=== PATIENT | female | born 1995 | race Hispanic/Latino ===

== ENCOUNTER 2022-06-06 00:49 | Day surgery (SDC) | payer OTHER ==
[2022-06-06] MEDS ORDERED: hydrALAZINE 20 MG/ML VIAL SLOW IVP PRN (00:52)
== END 2022-06-06 02:20 | disposition home or self-care (01) ==
LOC: CSHLD/OP 00:49
PROVIDERS: ATTEND Obstetrics & Gynecology
DX: O36.8130 Decreased fetal movements, third trimester, not applicable or unspecified (principal); Z3A.30 30 weeks gestation of pregnancy
CPT/HCPCS: 76819

== ENCOUNTER 2022-08-04 15:12 | Inpatient (IN) | payer OTHER ==
[~2022-08-04 15:12] MED LIST: Bupivacaine PF 0.5% 30 ML VIAL ONE; Lidocaine 2% PF 5 ML VIAL ONE
[2022-08-04] MEDS ORDERED: Labetalol HCl 100 MG/20 ML VIAL SLOW IVP PRN ×2 (15:20)
[2022-08-04] MEDS ORDERED: HYDROcodone/Acetaminophen 5/325 mg Tablet PO PRN (15:20)
[2022-08-04] MEDS ORDERED: Carboprost 250 MCG/ML AMP IM PRN (15:20)
[2022-08-04] MEDS ORDERED: Calcium Gluc 4.6 MEQ/10 ML (100 MG/ML) SLOW IVP PRN (15:20)
[2022-08-04] MEDS ORDERED: Ibuprofen 800 MG TAB PO PRN (15:20)
[2022-08-04] MEDS ORDERED: hydrALAZINE 20 MG/ML VIAL SLOW IVP PRN ×2 (15:20)
[2022-08-04] MEDS ORDERED: Diphenoxylate HCl/Atropine Tablet PO PRN (15:20)
[2022-08-04] MEDS ORDERED: Butorphanol Tartrate 1 MG/ML VIAL SLOW IVP PRN (15:20)
[2022-08-04] MEDS ORDERED: Lidocaine 1% (PF) 30 ML VIAL SC PRN (15:20)
[2022-08-04] MEDS ORDERED: Acetaminophen 500 MG TAB PO PRN (15:20)
[2022-08-04] MEDS ORDERED: Ondansetron PF 4 MG/2 ML Vial IVP PRN ×2 (15:20→21:07)
[2022-08-04] MEDS ORDERED: Lorazepam 2 MG/ML VIAL SLOW IVP PRN (15:20)
[2022-08-04] MEDS ORDERED: Misoprostol 200 MCG TAB PR PRN (15:20)
[2022-08-04] MEDS ORDERED: Promethazine HCl 25 MG/ML VIAL IM PRN ×2 (15:20→21:07)
[2022-08-04] MEDS ORDERED: Penicillin G Potassium 5 MILL.UNITS in Sodium Chloride 0.9% 100 ML IVPB SCH (15:30)
[2022-08-04] MEDS ORDERED: NS w/ Oxytocin 30 units 500 ML IV SCH ×2 (15:30)
[2022-08-04 15:41] VITALS: BMI 41.5
[2022-08-04] MEDS: hydrALAZINE 20 MG/ML VIAL SLOW IVP PRN ×2 (16:07→22:00)
[2022-08-04 16:13] LABS: Hemoglobin 9.9 g/dL (12.0-15.5); Mean Corpuscular HGB CONC 33.6 g/dL (32.0-36.0); Mean Corpuscular Hemoglobin 29.6 pg (27.0-33.0); Mean Corpuscular Volume 88.3 fl (81.6-98.3); Mean Platelet Volume 12.8 fl (7.4-10.4); Platelet Count 219 10x3/uL (150-450); RBC Distribution Width 13.4 % (11.5-14.5); Red Blood Cell (RBC) Count 3.34 10x6/uL (3.90-5.03); White Blood Cell (WBC) Count 8.7 10x3/uL (3.5-10.5)
[2022-08-04] MEDS: Magnesium Sulfate 20 gm/500 ml 20 GM/500 ML BAG IVPB SCH (16:50)
[2022-08-04 16:58] LABS: Syphilis Antibody Nonreactive (Nonreactive); Syphilis Antibody Index 0.04 S/CO (<1.00 Non-Reactive)
[2022-08-04 16:59] LABS: HBSAg Index 0.27 S/CO (0-0.99); Hep B Surf Ag Non-Reactive S/CO (NonReactive)
[2022-08-04 18:21] LABS: SARS-CoV-2 NAA Rapid Test Not Detected (NotDetected)
[2022-08-04] MEDS ORDERED: Fentanyl 2 mcg/Bup 0.1% Cadd 100 ML ONE (18:26)
[2022-08-04 18:32] LABS: ALT (SGPT) 20 U/L (8-55); AST (SGOT) 20 U/L (5-34); Albumin 3.2 g/dL (3.5-5.0); Alkaline Phosphatase 161 U/L (40-110); Anion Gap 17 mmol/L (10-20); BUN (Urea Nitrogen) 9 mg/dL (7.0-18.7); Bilirubin, Total 0.2 mg/dL (0.2-1.2); Calc. Creatinine Clearance 219 mL/min (70-130); Calcium 8.6 mg/dL (7.8-10.44); Carbon Dioxide 16 mmol/L (22-29); Chloride 109 mmol/L (98-107); Estimated GFR 128; Globulin 3.1 g/dL (2.4-3.5); Glucose 83 mg/dL (70-105); Potassium 4.3 mmol/L (3.5-5.1); Protein, Total 6.3 g/dL (6.0-8.3); Sodium 138 mmol/L (136-145)
[2022-08-04] MEDS: Fentanyl 2 mcg/Bupivacaine 0.1% Cassette 100 ML EPIDURAL SCH (19:00)
[2022-08-04 19:58] LABS: Creatinine, Urine 87.78 mg/dL (47-110)
[2022-08-04] MEDS ORDERED: Acetaminophen 325 MG TAB PO PRN (21:07)
[2022-08-04] MEDS ORDERED: Moisturizing Cream (Eucerin) 113 GM JAR TOP PRN (21:07)
[2022-08-04] MEDS ORDERED: ePHEDrine Sulfate 50 MG/10 ML VIAL SLOW IVP PRN (21:07)
[2022-08-04] MEDS ORDERED: Naloxone HCl 0.4 mg/ml Vial IVP PRN ×2 (21:07)
[2022-08-04] MEDS ORDERED: Lactated Ringer's 500 ML IV PRN (21:07)
[2022-08-04] MEDS ORDERED: diphenhydrAMINE 50 MG/ML VIAL IVP PRN (21:07)
[2022-08-04] MEDS ORDERED: Communication Order-Pharmacy FS SCH (21:15)
[2022-08-04] MEDS: Penicillin G 2.5 MILL.units 2.5 MILL.UNITS in Premix Bag 1 BAG IVPB SCH (22:04)
[2022-08-04] MEDS ORDERED: Dexmedetomidine 200 MCG/2 ML VIAL ONE (23:35)
[2022-08-05] MEDS: Penicillin G 2.5 MILL.units 2.5 MILL.UNITS in Premix Bag 1 BAG IVPB SCH (01:58)
[2022-08-05] MEDS: Magnesium Sulfate 20 gm/500 ml 20 GM/500 ML BAG IVPB SCH (02:27)
[2022-08-05] MEDS: Fentanyl 2 mcg/Bupivacaine 0.1% Cassette 100 ML EPIDURAL SCH (02:58)
[2022-08-05] MEDS: Lactated Ringer's 1,000 ML IV SCH (02:58)
[2022-08-05] MEDS: Losartan Potassium 50 MG TAB PO SCH (18:09)
[2022-08-06] MEDS: Lactated Ringer's 1,000 ML IV SCH ×3 (01:49→23:11)
[2022-08-06] MEDS: Magnesium Sulfate 20 gm/500 ml 20 GM/500 ML BAG IVPB SCH (01:50)
[2022-08-06] MEDS ORDERED: hydrALAZINE 20 MG/ML VIAL SLOW IVP PRN (05:38)
[2022-08-06] MEDS ORDERED: Benzocaine-Menthol 82.5 ML CAN TOP PRN (05:38)
[2022-08-06] MEDS ORDERED: diphenhydrAMINE 25 MG CAP PO PRN (05:38)
[2022-08-06] MEDS ORDERED: Bisacodyl 10 MG SUPP PR PRN (05:38)
[2022-08-06] MEDS ORDERED: Milk Of Magnesia 30 ML UDCUP PO PRN (05:38)
[2022-08-06] MEDS ORDERED: Boostrix 0.5 ML (Tdap) VIAL (>/=7 yrs of age) IM ONE (05:38)
[2022-08-06] MEDS ORDERED: Lanolin Ointment 7 GM TUBE TOP PRN (05:38)
[2022-08-06] MEDS ORDERED: Lorazepam 2 MG/ML VIAL SLOW IVP PRN (05:38)
[2022-08-06] MEDS ORDERED: Promethazine HCl 25 MG/ML VIAL IM PRN (05:38)
[2022-08-06] MEDS ORDERED: Calcium Gluc 4.6 MEQ/10 ML (100 MG/ML) SLOW IVP PRN (05:38)
[2022-08-06] MEDS ORDERED: Labetalol HCl 100 MG/20 ML VIAL SLOW IVP PRN (05:38)
[2022-08-06] MEDS ORDERED: Ondansetron PF 4 MG/2 ML Vial IVP PRN (05:38)
[2022-08-06] MEDS: Ibuprofen 800 MG TAB PO SCH ×3 (06:16→21:29)
[2022-08-06] MEDS: Ferrous Sulfate 325 MG TAB PO SCH ×2 (08:21→18:05)
[2022-08-06] MEDS: Prenatal Vitamin 1 TAB PO SCH (08:21)
[2022-08-06] MEDS: Docusate 100 MG CAP PO SCH ×2 (08:21→21:29)
[2022-08-06] MEDS: Losartan Potassium 50 MG TAB PO SCH (18:05)
[2022-08-06] MEDS: Penicillin G 2.5 MILL.units 2.5 MILL.UNITS in Premix Bag 1 BAG IVPB SCH ×2 (22:49→22:50)
[2022-08-07] MEDS: Ibuprofen 800 MG TAB PO SCH ×3 (05:59→20:31)
[2022-08-07] MEDS: Ferrous Sulfate 325 MG TAB PO SCH ×2 (08:12→16:05)
[2022-08-07] MEDS: Prenatal Vitamin 1 TAB PO SCH (08:12)
[2022-08-07] MEDS: Docusate 100 MG CAP PO SCH ×2 (08:12→20:32)
[2022-08-07] MEDS: HYDROcodone/Acetaminophen 5/325 mg Tablet PO PRN ×2 (08:20→17:00)
[2022-08-07] MEDS: cloNIDine 0.1 MG TAB PO PRN ×3 (08:56→16:04)
[2022-08-07] MEDS ORDERED: Losartan Potassium 50 MG TAB PO SCH (09:00)
[2022-08-07] MEDS ORDERED: Labetalol HCl 100 MG TAB PO SCH (23:15)
[2022-08-08] MEDS: Ibuprofen 800 MG TAB PO SCH ×3 (05:57→22:05)
[2022-08-08] MEDS: Labetalol HCl 100 MG TAB PO SCH ×2 (05:58→14:16)
[2022-08-08] MEDS: Docusate 100 MG CAP PO SCH ×2 (08:44→22:05)
[2022-08-08] MEDS: Prenatal Vitamin 1 TAB PO SCH (08:44)
[2022-08-08] MEDS: Losartan Potassium 50 MG TAB PO SCH (08:44)
[2022-08-08] MEDS: Ferrous Sulfate 325 MG TAB PO SCH ×2 (08:44→16:35)
[2022-08-08] MEDS: hydrALAZINE 20 MG/ML VIAL SLOW IVP PRN (16:35)
[2022-08-08] MEDS: Labetalol HCl 200 MG TAB PO SCH (22:05)
[2022-08-09] MEDS ORDERED: Enalaprilat Dihydrate 1.25 MG/ML VIAL SLOW IVP PRN (04:44)
[2022-08-09] MEDS: Labetalol HCl 200 MG TAB PO SCH ×3 (05:54→21:24)
[2022-08-09] MEDS: Ibuprofen 800 MG TAB PO SCH ×3 (05:54→21:24)
[2022-08-09] MEDS: Prenatal Vitamin 1 TAB PO SCH (08:25)
[2022-08-09] MEDS: Losartan Potassium 50 MG TAB PO SCH (08:25)
[2022-08-09] MEDS: Docusate 100 MG CAP PO SCH ×2 (08:25→21:24)
[2022-08-09] MEDS: Ferrous Sulfate 325 MG TAB PO SCH ×2 (08:26→17:00)
[2022-08-09] MEDS: Acetaminophen 500 MG TAB PO PRN ×2 (11:33→20:27)
[2022-08-09] MEDS: hydrALAZINE 20 MG/ML VIAL SLOW IVP PRN (11:33)
[2022-08-09] MEDS: NIFEdipine XL 30 MG TAB PO SCH (11:41)
[2022-08-09] MEDS ORDERED: NIFEdipine XL 30 MG TAB PO SCH (12:00)
[2022-08-09] MEDS: HYDROcodone/Acetaminophen 5/325 mg Tablet PO PRN (16:57)
[2022-08-10] MEDS: Ibuprofen 800 MG TAB PO SCH (06:00)
[2022-08-10] MEDS: Labetalol HCl 200 MG TAB PO SCH (06:04)
[2022-08-10] MEDS: Prenatal Vitamin 1 TAB PO SCH (08:28)
[2022-08-10] MEDS: NIFEdipine XL 30 MG TAB PO SCH (08:28)
[2022-08-10] MEDS: Losartan Potassium 50 MG TAB PO SCH (08:28)
[2022-08-10] MEDS: Docusate 100 MG CAP PO SCH (08:28)
[2022-08-10] MEDS: Ferrous Sulfate 325 MG TAB PO SCH (08:28)
[2022-08-10 11:13] VITALS: BP 133/82; TEMP 98.1
[2022-08-10] MEDS: HYDROcodone/Acetaminophen 5/325 mg Tablet PO PRN (12:14)
== END 2022-08-10 14:40 | disposition home or self-care (01) | DRG 807 ==
LOC: CSHLD 15:12 → CSHPED 08-06 05:36
PROVIDERS: ADMIT Family Medicine; ATTEND Family Medicine
PROC: 10907ZC Drainage of Amniotic Fluid, Therapeutic from Products of Conception, Via Natural or Artificial Opening (ICD-10-PCS; 2022-08-04)
PROC: 3E033VJ Introduction of Other Hormone into Peripheral Vein, Percutaneous Approach (ICD-10-PCS; 2022-08-04)
PROC: 10E0XZZ Delivery of Products of Conception, External Approach (ICD-10-PCS; principal; 2022-08-05)
DX: O14.14 Severe pre-eclampsia complicating childbirth (principal); Z37.0 Single live birth; Z20.822 Contact with and (suspected) exposure to COVID-19; Z3A.39 39 weeks gestation of pregnancy; O99.824 Streptococcus B carrier state complicating childbirth; Z79.899 Other long term (current) drug therapy; O69.81X0 Labor and delivery complicated by cord around neck, without compression, not applicable or unspecified
CPT/HCPCS: 36415; 51702; 80053; 82570; 84156; 85027; 86780; 86850; 86900; 86901; 87340; J0360; J2001; J2405; J2540; J2590; J3475; J3490; J7120; S0020; U0002

== ENCOUNTER 2025-06-22 00:18 | Emergency (ER) | payer OTHER, SELFPAY ==
[2025-06-22] MEDS ORDERED: HYDROcodone/Acetaminophen 10/325 mg Tablet ONE (00:37)
== END 2025-06-22 00:30 | disposition home or self-care (01) ==
LOC: CSHERS 00:18
DX: H60.91 Unspecified otitis externa, right ear (principal); H66.91 Otitis media, unspecified, right ear
CPT/HCPCS: 99283